=== PATIENT | female | born 1970 | race Two or more races ===

== ENCOUNTER 2017-09-18 00:27 | Emergency (ER) | payer BC ==
[~2017-09-18] VITALS: Ht 170.2 cm; Wt 64.4 kg
[2017-09-18] MEDS ORDERED: ONDANSETRON HCL 4 MG/2 ML VIAL IV ONE ×2 (01:00→06:00)
[2017-09-18] MEDS ORDERED: NALBUPHINE HCL 10 MG/1ml INJECTION IV ONE ×4 (01:00→06:00)
[2017-09-18] MEDS ORDERED: ETOMIDATE (2MG/ML) 20ML VIAL IV ONE (02:30)
[2017-09-18] MEDS ORDERED: NALBUPHINE HCL 10 MG/1ml INJECTION ONE (03:45)
[2017-09-18 05:29] VITALS: BP 125/48
== END 2017-09-18 06:15 | disposition short-term general hospital (02) ==
LOC: ER 00:28
DX: S82.61XA Displaced fracture of lateral malleolus of right fibula, initial encounter for closed fracture (principal); W18.39XA Other fall on same level, initial encounter; Y93.89 Activity, other specified; Y92.89 Other specified places as the place of occurrence of the external cause; Y99.8 Other external cause status
CPT/HCPCS: 27788; 70450; 73590; 73610; 73630; 94761; 96374; 96375; 96376; 99152; 99285; J2300; J2405; J7030